=== PATIENT | female | born 1975 | race Hispanic/Latino ===

== ENCOUNTER → 2022-02-22 | Outpatient (CLI) | payer BC, OTHER | END | disposition home or self-care (01) | LOC: RAH 10:20 | PROVIDERS: ATTEND Nurse Practitioner Family | DX: M79.604 Pain in right leg (principal) | CPT/HCPCS: 93926; 93971 ==

== ENCOUNTER → 2024-02-22 | Outpatient (CLI) | payer BC | END | disposition home or self-care (01) | LOC: RAH 12:53 | PROVIDERS: ATTEND Nurse Practitioner Women's Health | DX: Z12.31 Encounter for screening mammogram for malignant neoplasm of breast (principal); R92.333 Mammographic heterogeneous density, bilateral breasts | CPT/HCPCS: 77067 ==

== ENCOUNTER → 2024-09-17 | Outpatient (CLI) | payer BC ==
--- NOTE | 2024-09-17 14:16 | HMCIMG ---
Exam Type: US RENAL SONOGRAM Clinical Information: UNSP ABD PAIN Comparison: None Findings: Examination shows normal renal size and echogenicity bilaterally. Preserved cortical thickness and corticomedullary junction region is seen. No hydronephrosis or calculi are seen. No renal masses are seen. There is no evidence of perinephric fluid on either side. No evidence of significant ureteral dilatation is seen. The right kidney measures 10.5 x 3.3 cm. The left kidney measures 10.7 x 3.5 cm. Simple cyst left kidney. The urinary bladder is normal. No bladder masses, stones, or wall thickening is seen. IMPRESSION: Normal renal anatomy bilaterally.
== END | disposition home or self-care (01) ==
LOC: RAH 11:33
PROVIDERS: ATTEND Nurse Practitioner Family
DX: N28.1 Cyst of kidney, acquired (principal); R10.9 Unspecified abdominal pain
CPT/HCPCS: 76770

== ENCOUNTER → 2025-07-09 | Outpatient (CLI) | payer SELFPAY ==
--- NOTE | 2025-07-10 11:04 | HMCIMG ---
BILATERAL BREAST ULTRASOUND: CLINICAL HISTORY: Follow-up for mammogram from 05/24/2025 with left breast upper outer quadrant density. Finding: Real-time examination of the both breasts demonstrates moderately heterogeneous echotexture throughout both the breasts without evidence of focal solid mass. There is fibrocystic changes seen in both breasts. In the right breast the largest cyst measuring 0.9 x 0.8 x 1.0 cm. The left breast also has multiple cysts seen the largest seen at 3:00 measuring 1.0 x 0.8 x 1.0 cm.. There is a benign-appearing bilateral axillary lymph nodes the largest measuring 1.2 x 0.7 x 1.2 cm. The largest measuring 1.6 x 0.6 x 1.3 cm. IMPRESSION: Moderately dense breasts with fibrocystic changes with no solid hypoechoic lesion seen. FINAL ASSESSMENT: ACR: BI-RAD- 2. Benign Finding.
--- NOTE | 2025-07-15 11:38 | HMCIMG ---
DIGITAL left DIAGNOSTIC MAMMOGRAM Technique: The digital mammographic examination of left breast in craniocaudal, mediolateral oblique views along with CAD was obtained. Ultrasound of History: This is a 49 years year-old female 1, para1 Ab0 . Patient has no family history of breast cancer. Patient has no complaint patient is here for follow-up for mammogram from 05/24/2025. Reference:Prior mammogram from 05/24/2025, 02/22/2024 are available.. Breast composition: Breast composition C: The breasts are heterogeneously dense, which may obscure small masses. Finding: The digital mammographic examination of left breast in craniocaudal and mediolateral oblique view along with CAD demonstrates a density which is also seen on the coned-down compression view. Ultrasound demonstrate this to be a cyst. Ultrasound also note multiple cysts seen.. There is no evidence of any dendritic mass, cluster microcalcification or architectural distortion. The retromammary fat appears to be normal. IMPRESSION: The density appears to be a cyst and correlation with this ultrasound. NO RADIOGRAPHIC EVIDENCE OF MALIGNANT CHANGES. WE WOULD RECOMMEND ANNUAL FOLLOW UP WITH TOMOSYNTHESIS UNLESS OTHERWISE CLINICALLY INDICATED. I would recommend annual bilateral breast sonogram. FINAL ASSESSMENT: ACR: BI-RAD- 2. Benign Finding. NOTE: IF A WORK-UP OF THIS PATIENT LEADS TO A BIOPSY, PLEASE FORWARD A COPY OF THE PATHOLOGY REPORT TO OUR OFFICE REQUIRED BY [employer] MAY 15, 1994. A NEGATIVE MAMMOGRAM SHOULD NOT PRECLUDE BIOPSY OF A CLINICALLY PALPABLE SUSPICIOUS MASS, 10% OF BREAST CANCERS ARE MAMMOGRAPHICALLY OCCULT. THIS MAMMOGRAPHY FACILITY IS FULLY ACCREDITED BY THE [employer]OD AND [employer]UG [employer]ATION (FDA). THANK YOU FOR THIS REFERRAL.
== END | disposition home or self-care (01) ==
LOC: RAH 13:42
PROVIDERS: ATTEND Obstetrics & Gynecology
DX: N60.12 Diffuse cystic mastopathy of left breast (principal); N60.11 Diffuse cystic mastopathy of right breast; R92.333 Mammographic heterogeneous density, bilateral breasts; R92.2 Inconclusive mammogram
CPT/HCPCS: 77065